=== PATIENT | female | born 1990 | race Caucasian/White ===

== ENCOUNTER 2016-08-07 10:16 | Emergency (ER) ==
[2016-08-07] MEDS ORDERED: G.I. COCKTAIL PO ONE (11:18)
--- NOTE | 2016-08-07 11:34 | PROVIDER DOCUMENTATION ---
HPI-Abdominal Pain/GI Problem - General Source: patient - History of Present Illness-ABD Abdominal Pain Onset Location: reports: generalized abdomen Quality of Pain: reports: aching, cramping Severity in ED: reports: moderate Onset/Duration: reports: gradual, other (2months) Timing: reports: still present, getting worse (last pm) Activities at Onset: reports: none Exposure to sick contacts?: No Modifying Factors: improves with: nothing Associated Symptoms: denies: back/neck pain, diarrhea, dizziness, fever/chills, genitourinary problems, loss of appetite, malaise, nausea, vomiting Dark Stools Present?: reports: bright red blood Similar Symptoms Previously?: No Recently seen or treated by another doctor?: No <Сергей Concepcion - Last Filed: 08/07/16 11:31> <Mishel Soliman - Last Filed: 08/07/16 14:55> - General Chief Complaint: Abdominal Pain Stated Complaint: N/V/D Time Seen by Provider: 08/07/16 11:14 Allergies/Adverse Reactions: Patient Allergies Allergy/AdvReac Type Severity Reaction Status Date / Time Penicillins Allergy Severe ANAPHYLAXIS Verified 01/28/16 17:24 ketorolac tromethamine * Allergy RASH Verified 01/28/16 17:24 [From Toradol] - History of Present Illness-ABD Nature of Presenting Problems: patient is a 26 y/o F that presents to the ER with generalized abdominal pain x 2months that got worse last pm( pain has been since delivery of baby). Patient denies any diarrhea, fever, or vomiting. Reports some rectal bleeding (mom has history of Crohns) (Сергей Concepcion) Review of Systems - Adult - REVIEW OF SYSTEMS - ADULT Constitutional: denies: chills, fever Eyes: reports: no symptoms reported Ears, Nose, Mouth & Throat: reports: no symptoms reported Cardiovascular: denies: chest pain, orthopnea, palpitations Respiratory: denies: cough, shortness of breath, wheezing Gastrointestinal: reports: abdominal pain, rectal bleeding. denies: diarrhea, nausea, vomiting Genitourinary: reports: no symptoms reported Musculoskeletal: denies: back pain, joint pain, neck pain Integumentary: reports: no symptoms reported Neurological: reports: no symptoms reported Psychiatric: reports: no symptoms reported Endocrine: reports: no symptoms reported Hematologic/Lymphatic: reports: no symptoms reported Allergic/Immunologic: reports: no symptoms reported All Other Systems: Reviewed and Negative <Сергей Concepcion - Last Filed: 08/07/16 11:31> Past History - Adult - PAST MEDICAL HISTORY-ADULT Review of Records: reports: Old Records Reviewed, Nursing Assessment Review, Medications Reviewed Major Childhood Illnesses: reports: denies history Cardiovascular: reports: A-Fib Respiratory: reports: denies history Gastrointestinal: reports: denies history Obstetrical/Gynecological: reports: denies history Genitourinary: reports: denies history Musculoskeletal: reports: denies history Neurological: reports: Seizures/Epilepsy Endocrine/Immune: reports: denies history Other Conditions: reports: denies history - PRIOR SURGERIES/PROCEDURES Surgical/Procedure History: reports: appendectomy, cholecystectomy, - IMMUNIZATION STATUS Childhood Immunizations: See Nurse Assessment Flu Vaccine: See Nurse Assessment - FAMILY HISTORY Family History: reviewed, not pertinent <Сергей Concepcion - Last Filed: 08/07/16 11:31> Physical Exam-General - PHYSICAL EXAM-ADULT Initial Vital Signs Reviewed: Yes - CONSTITUTIONAL General Appearance: alert, no apparent distress - EYES Eyes: PERRL/EOMI, pink conjunctivae - HEAD, EARS, NOSE, MOUTH & THROAT HENMT: normocephalic/atraumatic, moist mucous membranes, normal ENT inspection - NECK Neck: non-tender, full range of motion, normal inspection - RESPIRATORY Respiratory: lungs clear, normal breath sounds, no respiratory distress, no accessory muscle use - CARDIOVASCULAR Cardiovascular: regular rate, rhythm, no edema, no murmur - GASTROINTESTINAL (ABDOMEN) Abdominal Exam: normal bowel sounds, soft, no organomegaly, no pulsatile mass, tenderness (diffusely generalized). negative: distended, guarding, rigid, rebound - MUSCULOSKELETAL Back Exam: no CVA tenderness, no vertebral tenderness Extremity: normal range of motion, normal inspection, no pedal edema - SKIN Integumentary: normal color, warm/dry - NEUROLOGIC Neurologic: grossly normal, no motor/sensory deficits - PSYCHIATRIC Psych/Mental Status: normal mood/affect, normal thought content, normal thought process, oriented x 3 <Сергей Concepcion - Last Filed: 08/07/16 11:31> Progress <Сергей Concepcion - Last Filed: 08/07/16 11:31> - CT/MRI 1 CT Study: Abdomen, Pelvis Impression: Abnormal (heterogenous uterine wall, possible fibroids, not present on 2011. Nonspecific fluid filled loops of bowel, possible mild enteritis, otherwise nad per radiology) <JourdanMishellukasz Fiore - Last Filed: 08/07/16 14:55> - PLAN OF CARE/RESULTS Progress/Plan/Lab Results: Vital Signs Temp Pulse Resp BP Pulse Ox 08/07/16 10:21 98.5 F 106 H 18 132/89 100 Penicillins Allergy (Severe, Verified 01/28/16 17:24) ANAPHYLAXIS ketorolac tromethamine * [From Toradol] Allergy (Verified 01/28/16 17:24) RASH Clindamycin [Cleocin] 300 mg PO Q6HR #40 capsule 01/28/16 Naproxen 375 mg PO BID #20 tablet 01/28/16 Dietary Diet NPO Start Sun Aug 07 111 Laboratory 08/07/16 08/07/16 08/07/16 11:43 11:43 11:43 WBC 12.72 H RBC 4.80 Hgb 13.8 Hct 42.5 MCV 88.5 MCH 28.8 MCHC 32.5 L RDW Std Deviation 12.7 Plt Count 286 MPV 11.6 H Immature Gran % (Auto) 0.2 Neut % (Auto) 69.1 Lymph % (Auto) 24.8 [place] % (Auto) 5.0 Eos % (Auto) 0.5 Baso % (Auto) 0.4 Immature Gran # (Auto) 0.03 Neut # (Auto) 8.79 H Lymph # (Auto) 3.16 [place] # (Auto) 0.63 H Eos # (Auto) 0.06 Baso # (Auto) 0.05 ESR 8 Sodium 138 Potassium 3.9 Chloride 103 Carbon Dioxide 27 Anion Gap 9 BUN 11 Creatinine 0.5 Estimated GFR/1.73 m2 > 60 BUN/Creatinine Ratio 22 Glucose 107 H Calculated Osmolality 276 Calcium 9.5 Total Bilirubin 0.30 AST 30 ALT 20 Alkaline Phosphatase 133 H Total Protein 8.5 H Albumin 4.5 Globulin 4.0 Albumin/Globulin Ratio 1.0 Amylase 91 Lipase 47 Urine Source Urine Color Urine Clarity Urine pH Ur Specific [place] Urine Protein Urine Ketones Urine Blood Urine Nitrite Urine Bilirubin Urine Urobilinogen Urine Microscopic RBC Urine WBC Urine Microscopic WBC Ur Epithelial Cells Urine Bacteria Urine Glucose Urine Test 08/07/16 08/07/16 11:40 11:40 WBC RBC Hgb Hct MCV MCH MCHC RDW Std Deviation Plt Count MPV Immature Gran % (Auto) Neut % (Auto) Lymph % (Auto) [place] % (Auto) Eos % (Auto) Baso % (Auto) Immature Gran # (Auto) Neut # (Auto) Lymph # (Auto) [place] # (Auto) Eos # (Auto) Baso # (Auto) ESR Sodium Potassium Chloride Carbon Dioxide Anion Gap BUN Creatinine Estimated GFR/1.73 m2 BUN/Creatinine Ratio Glucose Calculated Osmolality Calcium Total Bilirubin AST ALT Alkaline Phosphatase Total Protein Albumin Globulin Albumin/Globulin Ratio Amylase Lipase Urine Source CLEAN CATCH Urine Color YELLOW Urine Clarity CLEAR Urine pH 8.0 Ur Specific [place] 1.010 Urine Protein NEGATIVE Urine Ketones NEGATIVE Urine Blood NEGATIVE Urine Nitrite NEGATIVE Urine Bilirubin NEGATIVE Urine Urobilinogen NORMAL Urine Microscopic RBC Not Reportable Urine WBC TRACE A Urine Microscopic WBC <10 Ur Epithelial Cells <10 Urine Bacteria 1+ Urine Glucose NEGATIVE Urine Test NEGATIVE Orders Category Date Time Status Saline Loc DIRECTED Care 08/07/16 11:15 Active NPO Diet 08/07/16 11:[address] ABD/PELVIS W/ IV CONT ONLY [CT] Stat Exams 08/07/16 13:03 Taken FLAT/UPRIGHT ABD/1 VIEW CHEST [RAD] Stat Exams 08/07/16 11:18 Draft AMYLASE [CHEM] Stat Lab 08/07/16 11:43 Completed CBC WITH ELECTRONIC DIFF [HEME] Stat Lab 08/07/16 11:43 Completed COMPREHENSIVE METABOLIC PANEL [CHEM] Stat Lab 08/07/16 11:43 Completed LIPASE [CHEM] Stat Lab 08/07/16 11:43 Completed TEST-URINE [PREG] Stat Lab 08/07/16 11:40 Completed SED RATE [HEME] Stat Lab 08/07/16 11:[address] W/POSS RFLX CULT [URINALYSIS] Stat Lab 08/07/16 11:40 Completed URINE CULTURE [RM] Routine Lab 08/07/16 11:40 Received Lido/Banerjee Alk/Al&mg Hydrox [G.i. Cocktail] Med 08/07/16 11:18 Discontinued 30 ml PO NOW ONE Morphine Med 08/07/16 14:20 Discontinued 2 mg IV NOW ONE Promethazine [Phenergan] Med 08/07/16 14:20 Discontinued 12.5 mg IV NOW ONE Sodium Chloride 0.9% Med 08/07/16 14:20 Discontinued 10 ml INJ NOW ONE (Mishel Soliman) Departure <Сергей Concepcion - Last Filed: 08/07/16 11:31> - Departure Time of Disposition Order: 14:48 Certified Medical Emergency: Emergent <Mishel Soliman - Last Filed: 08/07/16 14:55> - Departure DIAGNOSIS: Gastroenteritis, PUD (peptic ulcer disease) Uterine fibroid Qualifiers: Uterine leiomyoma location: unspecified location Qualified Code(s): D25.9 - Leiomyoma of uterus, unspecified Disposition: HOME 01 Condition: Stable Additional Instructions: Please follow up with Dr. Villalta, external grinder tender Follow up with Dr. Jose, GI ED Follow Up Instructions: You have been treated by a care provider in the Emergency Department. These instructions are being provided to you so you can have an understanding of how to care for yourself upon discharge. Upon discharge from the Emergency Department, you are responsible for making arrangements for follow-up care by a physician of your choice. Take all prescribed medications as directed. Return to the Emergency Department immediately for any new or worsening symptoms. You may call the Physician Referral phone number at [phone] to obtain a list of Physicians who are taking new patients. Prescriptions: Dicyclomine [Bentyl] 20 mg PO BID #30 capsule Famotidine [Pepcid] 20 mg PO DAILY #20 tablet Promethazine [Phenergan] 25 mg PO Q6H PRN PRN #20 tablet PRN Reason: Nausea Referrals: Rodrigo Alvarez [Primary Care Provider] - Santiago Villalta MD [STAFF PHYSICIAN] - Susie Jose MD [STAFF PHYSICIAN] - Attestation - Scribe Verification/Attestation Scribe:: Сергей Concepcion Acting as Scribe for:: Mishel Soliman Scribe documention review:: This chart was documented by a scribe and accurately reflects the service the provider performed and the decisions made by the provider. - Physician/ Mid-level Attestation Patient care was provided by Mid-level provider (CLINICAL SUPPORT TECH/PA):: Yes Mid-level provider:: Mishel Soliman Mid-level documentation review:: The Mid-level provider documentation, treatment plan and medical decision making was reviewed by the physician who agrees with all treatment and medical decision making by the MLP. <Сергей Concepcion - Last Filed: 08/07/16 11:31> Physician Attestation
[2016-08-07 11:50] LABS: MANUAL DIFF NEEDED? NO
[2016-08-07 11:52] LABS: URINE SOURCE CLEAN CATCH
[2016-08-07 11:53] LABS: BASO% 0.4 % (0.0-0.8); EOS# 0.06 X1000 (0.0-0.7); EOS% 0.5 % (0.0-10.0); HEMATOCRIT 42.5 % (37.0-47.0); HEMOGLOBIN 13.8 g/dL (12.0-16.0); IMM GRAN# 0.03 X1000 (0.0-0.04); IMM GRAN% 0.2 % (0.0-0.5); LYMPH# 3.16 X1000 (1.2-3.4); LYMPH% 24.8 % (20.5-51.1); MCH 28.8 PG (27-31); MCHC 32.5 g/dL (33-37); MCV 88.5 FL (81-99); MONO# 0.63 X1000 (0.11-0.59); MPV 11.6 FL (7.4-10.4); NEUT% 69.1 % (42.2-75.2); PLT 286 X1000 (130-400)
[2016-08-07 11:55] LABS: BILIRUBIN URINE NEGATIVE (NEGATIVE); BLOOD URINE NEGATIVE (NEGATIVE); CLARITY CLEAR (CLEAR); COLOR YELLOW; GLUCOSE URINE NEGATIVE (NEGATIVE); LEUKOCYTES URINE TRACE (NEGATIVE); NITRITE URINE NEGATIVE (NEGATIVE); PROTEIN URINE NEGATIVE (NEGATIVE); UROBILINOGEN URINE NORMAL
[2016-08-07 12:05] LABS: URINE CULTURE PL NEEDED? YES; URINE EPITHELIAL CELLS <10 /HPF (<10); URINE WBC <10 /HPF (<10)
[2016-08-07 12:14] LABS: AGAP 9; ALBUMIN 4.5 g/dL (3.5-5.0); ALKALINE PHOSPHATASE 133 U/L (32-104); AMYLASE 91 U/L (20-200); BUN 11 mg/dL (8-22); CALCIUM 9.5 mg/dL (8.8-10.2); CHLORIDE 103 mmol/L (98-107); COSMO 276; GOT 30 U/L (10-30); GPT 20 U/L (10-36); LIPASE 47 U/L (13-60); POTASSIUM 3.9 mmol/L (3.5-5.1); SODIUM 138 mmol/L (136-145); TCO2 27 mmol/L (25-35); TOTAL PROTEIN 8.5 g/dL (6.3-8.3)
--- NOTE | 2016-08-07 14:04 | Diag Imaging Result Document ---
PROCEDURE NAME: FLAT/UPRIGHT ABD/1 VIEW CHEST - 08/07/2016 PLAIN RADIOGRAPH OF THE CHEST AND ABDOMEN, 3 VIEWS: COMPARISON: 01/18/2012. FINDINGS: There are unremarkable bowel gas and stool patterns. There is no evidence of bowel obstruction. There is no evidence of large volume free abdominal gas. There is no discrete organomegaly. The lungs are grossly clear. The cardiomediastinal silhouette and upper airway are grossly unremarkable. IMPRESSION: No evidence of acute chest or abdominal pathology.
[2016-08-07] MEDS ORDERED: PHENERGAN IV ONE (14:20)
[2016-08-07] MEDS ORDERED: SODIUM CHLORIDE 0.9% INJ ONE (14:20)
[2016-08-07] MEDS ORDERED: MORPHINE IV ONE (14:20)
--- NOTE | 2016-08-07 14:59 | Diag Imaging Result Document ---
PROCEDURE NAME: CT ABD/PELVIS W/ IV CONT ONLY - 08/07/2016 CT ABDOMEN AND PELVIS WITH IV CONTRAST: COMPARISON: 01/18/2012. FINDINGS: There has been a prior cholecystectomy. There is minimal compensatory biliary dilatation, expected. There is evidence of prior appendectomy. The uterine wall is very heterogeneous. This was not the case on the previous study. It is nonspecific. I suppose it could be due to development of uterine fibroids. Consider followup with pelvic ultrasound. There appears to be trace pelvic fluid, usually physiologic. There are several nonspecific fluid-filled loops of small bowel with small air-fluid levels. There is no severe distention. This could relate to mild enteritis. There is no bowel wall thickening, however. The remainder of the solid viscera of the abdomen and pelvis and the remainder of the GI tract is essentially unremarkable. IMPRESSION: 1. Very heterogeneous uterine wall that is nonspecific. Consider evaluation with pelvic ultrasound. 2. Nonspecific fluid-filled loops of small bowel with small air-fluid levels and only mild distention. Please see above discussion. 3. Interval cholecystectomy. 4. Other incidental/nonacute findings detailed above.
[2016-08-07 16:08] VITALS: BP 128/066
== END 2016-08-07 15:32 | disposition home or self-care (01) ==
LOC: P.ED 10:16
DX: K52.9 Noninfective gastroenteritis and colitis, unspecified (principal); K27.9 Peptic ulcer, site unspecified, unspecified as acute or chronic, without hemorrhage or perforation; D25.9 Leiomyoma of uterus, unspecified; R11.2 Nausea with vomiting, unspecified; R19.7 Diarrhea, unspecified; K62.5 Hemorrhage of anus and rectum; I48.91 Unspecified atrial fibrillation; R10.84 Generalized abdominal pain; Z79.899 Other long term (current) drug therapy
CPT/HCPCS: 36415; 74022; 74177; 80053; 81001; 81025; 82150; 83690; 85025; 85651; 87088; 96374; 96375; J2270; J2550; Q9967

== ENCOUNTER 2016-08-10 17:32 | Emergency (ER) ==
[2016-08-10 17:46] LABS: URINE SOURCE CLEAN CATCH
--- NOTE | 2016-08-10 17:46 | PROVIDER DOCUMENTATION ---
HPI-Abdominal Pain/GI Problem - General Source: patient - History of Present Illness-ABD Abdominal Pain Onset Location: reports: generalized abdomen Quality of Pain: reports: aching Severity in ED: reports: moderate Onset/Duration: reports: other (2mo) Timing: reports: intermittent Bruising or Bleeding Gums?: No Similar Symptoms Previously?: Yes Recently seen or treated by another doctor?: Yes <Katie Robledo - Last Filed: 08/10/16 17:52> <Mishel Soliman - Last Filed: 08/10/16 18:34> - General Chief Complaint: Return/Recheck Stated Complaint: ABD PAIN Time Seen by Provider: 08/10/16 17:41 Allergies/Adverse Reactions: Patient Allergies Allergy/AdvReac Type Severity Reaction Status Date / Time Penicillins Allergy Severe ANAPHYLAXIS Verified 01/28/16 17:24 ketorolac tromethamine * Allergy RASH Verified 01/28/16 17:24 [From Toradol] - History of Present Illness-ABD Nature of Presenting Problems: Has had multiple ER visits for same symptoms. Pt presents to er with cc of generalized abd pain for past 2 months. Pt was diagnosed with ovarian cyst. Pt reports she just gave and since has been losing weight. Pt also reports dysuria,urgency and lower back pain with nausea. (Katie Robledo) Review of Systems - Adult - REVIEW OF SYSTEMS - ADULT Constitutional: denies: chills, fever, fatique Eyes: reports: no symptoms reported Ears, Nose, Mouth & Throat: reports: no symptoms reported Cardiovascular: denies: chest pain, irregular heart rate, orthopnea, syncope Respiratory: denies: cough, shortness of breath, wheezing Gastrointestinal: reports: nausea. denies: abdominal pain, diarrhea, vomiting Genitourinary: reports: dysuria, frequency, urgency. denies: hematuria, hesitency, incontinence Musculoskeletal: reports: back pain. denies: bone pain, joint pain, joint swelling Integumentary: reports: no symptoms reported Neurological: reports: no symptoms reported Psychiatric: reports: no symptoms reported Endocrine: reports: no symptoms reported Hematologic/Lymphatic: reports: no symptoms reported Allergic/Immunologic: reports: no symptoms reported All Other Systems: Reviewed and Negative <Katie Robledo - Last Filed: 08/10/16 17:52> Past History - Adult - PAST MEDICAL HISTORY-ADULT Review of Records: reports: Nursing Assessment Review Major Childhood Illnesses: reports: denies history Cardiovascular: reports: denies history Neurological: reports: Seizures/Epilepsy Psychiatric: reports: anxiety - PRIOR SURGERIES/PROCEDURES Surgical/Procedure History: reports: appendectomy, cholecystectomy, - IMMUNIZATION STATUS Childhood Immunizations: See Nurse Assessment Flu Vaccine: See Nurse Assessment - FAMILY HISTORY Family History: reviewed, not pertinent - SOCIAL HISTORY Smoking: denies <Katie Robledo - Last Filed: 08/10/16 17:52> - PAST MEDICAL HISTORY-ADULT Major Childhood Illnesses: reports: denies history Cardiovascular: reports: A-Fib Respiratory: reports: denies history Gastrointestinal: reports: denies history Obstetrical/Gynecological: reports: denies history Genitourinary: reports: denies history Musculoskeletal: reports: denies history Neurological: reports: Seizures/Epilepsy Endocrine/Immune: reports: denies history Other Conditions: reports: denies history - PRIOR SURGERIES/PROCEDURES Surgical/Procedure History: reports: appendectomy, cholecystectomy, - IMMUNIZATION STATUS Childhood Immunizations: See Nurse Assessment Flu Vaccine: See Nurse Assessment - FAMILY HISTORY Family History: reviewed, not pertinent <Mishel Soliman - Last Filed: 08/10/16 18:34> Physical Exam-General - PHYSICAL EXAM-ADULT Initial Vital Signs Reviewed: Yes - CONSTITUTIONAL General Appearance: appears well, alert, no apparent distress - EYES Eyes: PERRL/EOMI, pink conjunctivae - HEAD, EARS, NOSE, MOUTH & THROAT HENMT: normocephalic/atraumatic, moist mucous membranes, normal ENT inspection - NECK Neck: non-tender, full range of motion, normal inspection - RESPIRATORY Respiratory: chest non-tender, lungs clear, normal breath sounds - CARDIOVASCULAR Cardiovascular: normal peripheral pulses, regular rate, rhythm, no edema - GASTROINTESTINAL (ABDOMEN) Abdominal Exam: normal bowel sounds, soft, no organomegaly, no pulsatile mass, tenderness (ttp general) - LYMPHATIC Lymphatic: no adenopathy - MUSCULOSKELETAL Back Exam: normal inspection, no CVA tenderness, no vertebral tenderness Extremity: normal range of motion, non-tender, normal gait - SKIN Integumentary: normal color, normal turgor, warm/dry - NEUROLOGIC Neurologic: grossly normal, no motor/sensory deficits - PSYCHIATRIC Psych/Mental Status: normal mood/affect, normal thought content, normal thought process, oriented x 3 <Katie Robledo - Last Filed: 08/10/16 17:52> Progress <Katie Robledo - Last Filed: 08/10/16 17:52> <Mishel Soliman - Last Filed: 08/10/16 18:34> - PLAN OF CARE/RESULTS Progress/Plan/Lab Results: Orders Category Date Time Status CBC WITH ELECTRONIC DIFF [HEME] Stat Lab 08/10/16 17:45 Ordered CMP [COMPREHENSIVE METABOLIC PANEL] [CHEM] Stat Lab 08/10/16 17:45 Ordered TEST-URINE [PREG] Stat Lab 08/10/16 17:[address] W/POSS RFLX CULT [URINALYSIS] Stat Lab 08/10/16 17:40 Results Vital Signs - 24 hr 08/10/16 17:36 Temperature 98 F Pulse Rate 103 H Respiratory 18 Rate Blood Pressure 134/67 O2 Sat by Pulse 100 Oximetry (Katie Robledo) Vital Signs Temp Pulse Resp BP Pulse Ox 08/10/16 17:36 98 F 103 H 18 134/67 100 Penicillins Allergy (Severe, Verified 01/28/16 17:24) ANAPHYLAXIS ketorolac tromethamine * [From Toradol] Allergy (Verified 01/28/16 17:24) RASH Clindamycin [Cleocin] 300 mg PO Q6HR #40 capsule 01/28/16 Naproxen 375 mg PO BID #20 tablet 01/28/16 Dicyclomine [Bentyl] 20 mg PO BID #30 capsule 08/07/16 Famotidine [Pepcid] 20 mg PO DAILY #20 tablet 08/07/16 Promethazine [Phenergan] 25 mg PO Q6H PRN PRN #20 tablet 08/07/16 Laboratory 08/10/16 08/10/16 08/10/16 17:58 17:58 17:40 WBC 9.67 RBC 4.41 Hgb 13.0 Hct 39.3 MCV 89.1 MCH 29.5 MCHC 33.1 RDW Std Deviation 12.9 Plt Count 281 MPV 11.3 H Immature Gran % (Auto) 0.2 Neut % (Auto) 54.7 Lymph % (Auto) 35.2 [place] % (Auto) 7.8 Eos % (Auto) 1.6 Baso % (Auto) 0.5 Immature Gran # (Auto) 0.02 Neut # (Auto) 5.30 Lymph # (Auto) 3.40 [place] # (Auto) 0.75 H Eos # (Auto) 0.15 Baso # (Auto) 0.05 Sodium 140 Potassium 3.7 Chloride 104 Carbon Dioxide 24 L Anion Gap 12 BUN 10 Creatinine 0.7 Estimated GFR/1.73 m2 > 60 BUN/Creatinine Ratio 14 Glucose 102 Calculated Osmolality 279 Calcium 9.1 Total Bilirubin 0.40 AST 37 H ALT 24 Alkaline Phosphatase 125 H Total Protein 7.8 Albumin 4.2 Globulin 4.0 Albumin/Globulin Ratio 1.0 Urine Source CLEAN CATCH Urine Color YELLOW Urine Clarity SL. CLOUDY A Urine pH 7.0 Ur Specific [place] 1.015 Urine Protein TRACE A Urine Ketones NEGATIVE Urine Blood NEGATIVE Urine Nitrite NEGATIVE Urine Bilirubin NEGATIVE Urine Urobilinogen NORMAL Urine Microscopic RBC Not Reportable Urine WBC TRACE A Urine Microscopic WBC <10 Ur Epithelial Cells <10 Urine Bacteria 1+ Urine Glucose NEGATIVE Urine Test 08/10/16 17:40 WBC RBC Hgb Hct MCV MCH MCHC RDW Std Deviation Plt Count MPV Immature Gran % (Auto) Neut % (Auto) Lymph % (Auto) [place] % (Auto) Eos % (Auto) Baso % (Auto) Immature Gran # (Auto) Neut # (Auto) Lymph # (Auto) [place] # (Auto) Eos # (Auto) Baso # (Auto) Sodium Potassium Chloride Carbon Dioxide Anion Gap BUN Creatinine Estimated GFR/1.73 m2 BUN/Creatinine Ratio Glucose Calculated Osmolality Calcium Total Bilirubin AST ALT Alkaline Phosphatase Total Protein Albumin Globulin Albumin/Globulin Ratio Urine Source Urine Color Urine Clarity Urine pH Ur Specific [place] Urine Protein Urine Ketones Urine Blood Urine Nitrite Urine Bilirubin Urine Urobilinogen Urine Microscopic RBC Urine WBC Urine Microscopic WBC Ur Epithelial Cells Urine Bacteria Urine Glucose Urine Test NEGATIVE Orders Category Date Time Status CBC WITH ELECTRONIC DIFF [HEME] Stat Lab 08/10/16 17:58 Completed CMP [COMPREHENSIVE METABOLIC PANEL] [CHEM] Stat Lab 08/10/16 17:58 Completed TEST-URINE [PREG] Stat Lab 08/10/16 17:[address] W/POSS RFLX CULT [URINALYSIS] Stat Lab 08/10/16 17:40 Completed URINE CULTURE [RM] Routine Lab 08/10/16 18:04 Ordered (Mishel Soliman) Departure <Katie Robledo - Last Filed: 08/10/16 17:52> - Departure Time of Disposition Order: 18:32 Certified Medical Emergency: Emergent <Mishel Soliman - Last Filed: 08/10/16 18:34> - Departure DIAGNOSIS: Acute UTI Disposition: HOME 01 Condition: Stable Additional Instructions: Follow up with Dr. Torres, GI ED Follow Up Instructions: You have been treated by a care provider in the Emergency Department. These instructions are being provided to you so you can have an understanding of how to care for yourself upon discharge. Upon discharge from the Emergency Department, you are responsible for making arrangements for follow-up care by a physician of your choice. Take all prescribed medications as directed. Return to the Emergency Department immediately for any new or worsening symptoms. You may call the Physician Referral phone number at [phone] to obtain a list of Physicians who are taking new patients. Prescriptions: Sulfamethoxazole/Trimethoprim [Bactrim Ds Tablet] 1 each PO BID #10 tablet Referrals: Rodrigo Alvarez [Primary Care Provider] - Tonio Torres MD [STAFF PHYSICIAN] - Attestation - Scribe Verification/Attestation Scribe:: Katie Robledo Acting as Scribe for:: Mishel Soliman Scribe documention review:: This chart was documented by a scribe and accurately reflects the service the provider performed and the decisions made by the provider. <Katie Robledo - Last Filed: 08/10/16 17:52> - Physician/ Mid-level Attestation Patient care was provided by Mid-level provider ([place] ATTORNEY/PA):: Yes Mid-level provider:: Mishel Soliman Mid-level documentation review:: The Mid-level provider documentation, treatment plan and medical decision making was reviewed by the physician who agrees with all treatment and medical decision making by the P. <Mishel Soliman - Last Filed: 08/10/16 18:34> Physician Attestation
[2016-08-10 18:00] LABS: MANUAL DIFF NEEDED? NO
[2016-08-10 18:00] LABS: BILIRUBIN URINE NEGATIVE (NEGATIVE); BLOOD URINE NEGATIVE (NEGATIVE); CLARITY SL. CLOUDY (CLEAR); COLOR YELLOW; GLUCOSE URINE NEGATIVE (NEGATIVE); LEUKOCYTES URINE TRACE (NEGATIVE); NITRITE URINE NEGATIVE (NEGATIVE); PROTEIN URINE TRACE mg/dL (NEGATIVE); SP GRAVITY URINE 1.015; UROBILINOGEN URINE NORMAL
[2016-08-10 18:01] LABS: BASO% 0.5 % (0.0-0.8); EOS# 0.15 X1000 (0.0-0.7); EOS% 1.6 % (0.0-10.0); HEMATOCRIT 39.3 % (37.0-47.0); IMM GRAN# 0.02 X1000 (0.0-0.04); IMM GRAN% 0.2 % (0.0-0.5); LYMPH% 35.2 % (20.5-51.1); MCH 29.5 PG (27-31); MCHC 33.1 g/dL (33-37); MCV 89.1 FL (81-99); MONO# 0.75 X1000 (0.11-0.59); MONO% 7.8 % (1.7-9.3); MPV 11.3 FL (7.4-10.4); NEUT% 54.7 % (42.2-75.2); PLT 281 X1000 (130-400); RBC 4.41 XMIL (4.2-5.4)
[2016-08-10 18:03] LABS: URINE WBC <10 /HPF (<10)
[2016-08-10 18:04] LABS: URINE CULTURE PL NEEDED? YES; URINE EPITHELIAL CELLS <10 /HPF (<10)
[2016-08-10 18:28] LABS: AGAP 12; ALBUMIN 4.2 g/dL (3.5-5.0); ALKALINE PHOSPHATASE 125 U/L (32-104); BUN 10 mg/dL (8-22); CALCIUM 9.1 mg/dL (8.8-10.2); CHLORIDE 104 mmol/L (98-107); COSMO 279; GOT 37 U/L (10-30); GPT 24 U/L (10-36); POTASSIUM 3.7 mmol/L (3.5-5.1); SODIUM 140 mmol/L (136-145); TCO2 24 mmol/L (25-35); TOTAL PROTEIN 7.8 g/dL (6.3-8.3)
[2016-08-10] MEDS ORDERED: LEVSIN-SL SL ONE (19:07)
[2016-08-10] MEDS ORDERED: PHENERGAN IM ONE (19:07)
[2016-08-10 19:42] VITALS: BP 155/82
== END 2016-08-10 19:44 | disposition home or self-care (01) ==
LOC: P.ED 17:32
DX: N39.0 Urinary tract infection, site not specified (principal); R10.84 Generalized abdominal pain; R30.0 Dysuria; R39.15 Urgency of urination; R35.0 Frequency of micturition; M54.5 Low back pain; R11.0 Nausea; I48.91 Unspecified atrial fibrillation; Z79.1 Long term (current) use of non-steroidal anti-inflammatories (NSAID)
CPT/HCPCS: 80053; 81001; 81025; 85025; 87088; 96372; J2550